=== PATIENT | male | born 1995 | race Two or more races ===

== ENCOUNTER 2017-06-20 15:55 | Emergency (ER) | payer MEDICAID ==
[~2017-06-20] VITALS: Ht 167.6 cm; Wt 72.6 kg
--- NOTE | 2017-06-20 15:55 | NUR ---
[facility] PER FAMILY PT "NEEDS MEDICAL CLEARANCE FOR [facility] OR JUAN MIGUEL ADMISSION". NAD NOTED. PT FOLLOWS COMMANDS. RR EVEN AND UNLABORED. PENDING MD THOMPSON.
[2017-06-20 17:17] LABS: BASOPHILS # (AUTO) 0.1 /CMM (0.0-0.2); BASOPHILS % (AUTO) 0.6 % (0.0-2.0); EOSINOPHILS % (AUTO) 0.2 % (0.0-6.0); HEMATOCRIT 46 % (39-51); HEMOGLOBIN 15.9 g/dL (13.5-17.5); LYMPHOCYTES # (AUTO) 1.9 /CMM (0.8-4.8); LYMPHOCYTES % (AUTO) 16.6 % (20.0-44.0); MEAN CORPUSCULAR HEMOGLOBIN 31 PG (26.0-33.0); MEAN CORPUSCULAR HGB CONC 35 g/dl (31.0-36.0); MEAN CORPUSCULAR VOLUME 89 fL (80-96); MONOCYTES % (AUTO) 8.8 % (2.0-12.0); NEUTROPHILS # (AUTO) 8.2 /CMM (1.8-8.9); NEUTROPHILS % (AUTO) 73.8 % (43.0-81.0); PLATELET COUNT (AUTO) 328 /CMM (150-450); RDW COEFFICIENT OF VARIATION 12.9 (11.5-15.0); RED BLOOD CELL COUNT(AUTO) 5.19 MIL/uL (4.5-6.0); WHITE BLOOD COUNT (AUTO) 11.2 K/uL (4.3-11.0)
[2017-06-20 17:38] LABS: APPEARANCE,URINE CLEAR (CLEAR); BILIRUBIN,URINE 1+ (NEGATIVE); BLOOD, URINE NEGATIVE Ery/uL (NEGATIVE); COLOR,URINE YELLOW (YELLOW); KETONES,URINE 1+ (NEGATIVE); LEUKOCYTE ESTERASE ,URINE NEGATIVE (NEGATIVE); NITRITE, URINE NEGATIVE (NEGATIVE); PROTEIN,URINE TRACE mg/dl (NEGATIVE); UGLUCOSE NEGATIVE (NEGATIVE); UROBILINOGEN,URINE 0.2 EU/dL (0.2)
[2017-06-20 17:42] LABS: ALANINE AMINOTRANSFERASE 36 U/L (12-78); ALBUMIN 4.2 g/dL (3.4-5.0); ALCOHOL, BLOOD < 3 mg/dL (0-0); ALKALINE PHOSPHATASE 80 U/L (46-116); ASPARTATE AMINOTRANSFERASE 36 U/L (15-37); BILIRUBIN,DIRECT 0.3 mg/dL (0.0-0.2); BILIRUBIN,TOTAL 1.3 mg/dL (0.2-1.0); CALCIUM, SERUM 9.4 mg/dL (8.5-10.1); CARBON DIOXIDE 27 mmol/L (21-32); CHLORIDE 101 mmol/L (98-107); CREATININE 1.3 mg/dL (0.6-1.3); GLUCOSE 92 mg/dL (74-106); POTASSIUM 3.4 mmol/L (3.5-5.1); SODIUM SERUM 139 mmol/L (136-145); TOTAL PROTEIN, SERUM 7.9 g/dL (6.4-8.2); UREA NITROGEN, BLOOD 21 mg/dL (7-18)
[2017-06-20 17:56] LABS: BACTERIA,URINE Rare /HPF (None Seen); RBC,URINE 0-2 /HPF (0-2); SQUAMOUS EPITHELIAL CELL,UR Few /HPF (None Seen); WBC,URINE 0-2 /HPF (0-3)
[2017-06-20] MEDS ORDERED: HALOPERIDOL LACTATE INJ 5 MG/ML VIAL IM ONE (18:00)
[2017-06-20] MEDS ORDERED: LORAZEPAM INJ 2 MG/ML VIAL IM ONE (18:00)
[2017-06-20] MEDS ORDERED: diphenhydrAMINE HCL 50 MG/ML VIAL IM ONE (18:00)
[2017-06-20] MEDS ORDERED: HALOPERIDOL LACTATE INJ 5 MG/ML VIAL ONE (18:11)
[2017-06-20] MEDS ORDERED: diphenhydrAMINE HCL 50 MG/ML VIAL ONE (18:11)
[2017-06-20] MEDS ORDERED: LORAZEPAM INJ 2 MG/ML VIAL ONE (18:12)
--- NOTE | 2017-06-20 18:30 | NUR ---
MEDICATIONS GIVEN ORDERED.
--- NOTE | 2017-06-20 19:05 | NUR ---
RECEIVED REPORT FROM ANNA ULLOA EDDIE.
--- NOTE | 2017-06-20 19:56 | NUR ---
Patient is resting comfortably in bed with eyes closed. Easily aroused. VSS
--- NOTE | 2017-06-20 20:12 | NUR ---
FAMILY AT BEDSIDE
--- NOTE | 2017-06-20 22:55 | NUR ---
Patient is resting comfortably in bed with eyes closed. Easily aroused. VSS
--- NOTE | 2017-06-20 23:52 | NUR ---
NIDHI GODWIN AT BEDSIDE SPEAKING TO PT REGARDING POC
--- NOTE | 2017-06-21 01:35 | NUR ---
PT AOX3, AWAKE.
--- NOTE | 2017-06-21 01:51 | NUR ---
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
--- NOTE | 2017-06-21 02:08 | NUR ---
ART SPEAKING TO PT FAMILY OT, [place] [phone]
--- NOTE | 2017-06-21 03:15 | NUR ---
Patient discharged to home in stable condition. Written and verbal after care instructions given. Patient verbalizes understanding of instruction. however pt refused to sign papers. ambulatory with a steady gait. instructed pt not to drive. pt verbalize understanding. pt accompanied by father.
[2017-06-21 03:16] VITALS: BP 118/68
== END 2017-06-21 03:18 | disposition home or self-care (01) ==
LOC: ER 15:58
DX: F15.20 Other stimulant dependence, uncomplicated (principal); R45.851 Suicidal ideations
CPT/HCPCS: 36415; 80048-TC; 80076-TC; 80305; 81000-TC; 85025-TC; A4606; G0480; J1200; J1630; J2060; Z7610